=== PATIENT | female | born 1990 | race Caucasian/White ===

== ENCOUNTER 2025-02-17 15:02 | Emergency (ER) | payer OTHER ==
[~2025-02-17] VITALS: Ht 167.6 cm; Wt 105.4 kg
[2025-02-17] MEDS ORDERED: dexamethasone sod phosphate 10mg/ml inj PO STA (16:17)
[2025-02-17] MEDS ORDERED: BROM118S60 PO (16:21)
[2025-02-17] MEDS ORDERED: BENZ-38 PO (16:21)
[2025-02-17] MEDS ORDERED: PRED20TA PO (16:21)
[2025-02-17] MEDS ORDERED: DEXAMETHASONE 6 MG TABLET PO ONE (16:25)
[2025-02-17] MEDS ORDERED: dexamethasone 4mg tablet PO ONE (16:25)
[2025-02-17] MEDS: ipratropium/albuterol 3ml nebule NEB ONE (16:32)
[2025-02-17 16:33] VITALS: PULSE 104; RESP 18; O2SAT 98
[2025-02-17 16:40] VITALS: PULSE 98; RESP 18; O2SAT 98
[2025-02-17 16:45] VITALS: BP 126/66; PULSE 94; RESP 20; TEMP 98.8; O2SAT 96
== END 2025-02-17 16:46 | disposition home or self-care (01) ==
LOC: ER 15:03
DX: J22 Unspecified acute lower respiratory infection (principal); R05.9 Cough, unspecified; Z79.899 Other long term (current) drug therapy
CPT/HCPCS: 71045; 94640; 94760; 99283